=== PATIENT | female | born 1935 | race Caucasian/White ===

== ENCOUNTER 2017-09-11 15:45 | Inpatient (IN) | payer MEDICARE, MEDICAID ==
[~2017-09-11] VITALS: Ht 162.6 cm; Wt 77.3 kg
[~2017-09-11 15:45] MED LIST: ADVA100A INH; APIX5TAB PO; CARV6.25 PO; CICL8SOL TOPICAL; CILO50TA PO; CLAR10CA3 PO; DONE10TA7 PO; GABA300C5 PO; OXYB5TAB8 PO; PRAV40TA2 PO; PRIM50 PO; RISP0.5T2 PO; RISP0.5T25 PO; ROPI0.25 PO; SPIRCAP INH; SYMB160A INH; TYLE325T PO; TYLETAB34 PO; VENTAER INH; VESI5TAB2 PO
--- NOTE | 2017-09-11 16:50 | HHI.HP ---
HPI Service [facility] Primary Care Physician Rick Gay MD Admission Diagnosis Diagnoses: (1) Acute and chronic respiratory failure with hypoxia Diagnosis: Principal (2) Chronic obstructive pulmonary disease with acute exacerbation Diagnosis: Principal Chief Complaint: Cough and shortness of breath Travel History International Travel<30 Days: No Contact w/Intl Traveler <30 Da: No History of Present Illness Written by Jatin Borrego, acting as scribe for Dr. Fernandez on 09/11/17 at 16: 48. 82-year-old female with known history of hypertension, hyperlipidemia , history of myocardial infarction, chronic hypoxic respiratory failure on 2 L nasal cannula, chronic obstructive pulmonary disease, history of atrial fibrillation who presented the hospital at the request of her ALEJANDRO because of shortness of breath and cough. Patient indicates that she had been treated for upper respiratory infection with a weeks worth of antibiotics by her primary medical doctor Dr. Geremias Lopez. Patient finished the antibiotics 1 week ago and since then she has been having a dry nonproductive cough with progressive shortness of breath and dyspnea. Patient denies any fever, chills. She was experiencing some shortness of breath. She does live an ALEJANDRO and the staff did check on her and noticed that she was short of breath so they brought her to the hospital for evaluation. Upon evaluation emergency department patient was found to have increased need for O2 supplementation to maintain O2 sats greater than 92%. Patient was given Levaquin, Solu-Medrol, DuoNeb treatment emergency department with improvement. Patient was recommended admission for further management. Review of Systems Respiratory: COMPLAINS OF: Cough, Shortness of breath Except as stated in HPI: all other systems reviewed are Neg Past Family Social History Past Medical History Hypertension Hyperlipidemia Atrial fibrillation History congestive heart failure History of myocardial infarction History of CVA Diabetes Chronic obstructive pulmonary disease History of tobacco abuse Carotid stenosis status post endarterectomy Dementia Past Surgical History Left carotid endarterectomy Left hip surgery Lumbar laminectomy Appendectomy Reported Medications Reported Meds & Active Scripts Active Reported Claritin (Loratadine) 10 Mg Cap 10 Mg PO DAILY Gabapentin 300 Mg Cap 600 Mg PO TID Ciclopirox (Nail Lacquer) Topical 8% Soln 1 Applic TOPICAL HS Advair Diskus Inh (Fluticasone-Salmeterol Inh) 100-50 Mcg/Blist Aer 1 Puff INH BID Rinse mouth after use. Ventolin Hfa 18 GM Inh (Albuterol Sulfate) 90 Mcg/Act Aer 2 Puff INH Q6H PRN Tylenol-Codeine #3 (Acetaminophen-Codeine) 300-30 mg Tab 1 Tab PO Q4H PRN Tylenol (Acetaminophen) 325 Mg Tab 650 Mg PO Q6H PRN Vesicare (Solifenacin) 5 Mg Tab 5 Mg PO DAILY Ropinirole 0.25 Mg Tab 0.25 Mg PO HS Risperidone 0.5 Mg Tab 0.5 Mg PO HS Pravastatin 40 Mg Tab 40 Mg PO DAILY Spiriva Handihaler (Tiotropium Inh) 18 Mcg Cap 18 Mcg INH DAILY 1 capsule = 18 mcg Mysoline (Primidone) 50 Mg Tab 50 Mg PO DAILY Eliquis (Apixaban) 5 Mg Tab 5 Mg PO BID Donepezil 10 Mg Tab 10 Mg PO HS Cilostazol 50 Mg Tab 50 Mg PO BID Coreg (Carvedilol) 6.25 Mg Tab 6.25 Mg PO BID Allergies: Coded Allergies: aspirin (Unverified Allergy, Severe, RASHES, 09/11/17) penicillin G (Unverified Allergy, Intermediate, RASHES , 09/11/17) procaine (Unverified Allergy, Mild, HIVES, 09/11/17) Family History Family history was reviewed and significant for diabetes Social History Patient quit smoking 6 years ago, prior to that she smoked 1 pack of cigarettes a day since she was 16 years old. Patient denies any alcohol or illicit drugs Physical Exam Physical Exam GENERAL: Well-developed, well-nourished, in no acute distress. alert and orientated HEENT: Head is normocephalic without any lesions or masses noted. Facial features are symmetric. Eyes: Pupils equal round reactive to light. Extraocular muscles are intact. Conjunctivae were clear. Oropharyngeal: Pharynx without any erythema edema. Tongue is midline without deviation. Buccal mucosa is moist without any masses or lesions NECK: Supple without any masses. Trachea midline no deviation. No JVD, no bruits are appreciated CARDIAC: Regular rhythm, regular rate. S1/S2 are heard. No murmurs gallops or rubs. LUNGS: Clear to auscultation bilaterally. No wheeze, rhonchi or rales. No use of accessory muscles on inspiration or expiration. ABDOMEN: Soft, nontender. Nondistended. Bowel sounds heard in all 4 quadrants. No organomegaly or masses. Negative rebound, negative guarding EXTREMITIES: No edema, pulses are equal bilaterally. No cyanosis or clubbing NEUROLOGY: Mood and affect appear appropriate. Cranial nerves II through XII grossly intact. Muscle strength 5/5 in upper and lower extremities bilaterally. Deep tendon reflexes are 2+ in upper and lower extremities bilaterally. Caprini VTE Risk Assessment Caprini VTE Risk Assessment: Mod/High Risk (score >= 2) Caprini Risk Assessment Model Point Value = 1 Point Value = 2 Point Value = 3 Point Value = 5 Age 41-60 Minor surgery BMI > 25 kg/m2 Swollen legs Varicose veins or History of unexplained or recurrent spontaneous Oral contraceptives or hormone replacement Sepsis (< 1 month) Serious lung disease, including pneumonia (< 1 month) Abnormal pulmonary function Acute myocardial infarction Congestive heart failure (< 1 month) History of inflammatory bowel disease Medical patient at bed rest Age 61-74 Arthroscopic surgery Major open surgery (> 45 min) Laparoscopic surgery (> 45 min) Malignancy Confined to bed (> 72 hours) Immobilizing plaster cast Central venous access Age >= 75 History of VTE Family history of VTE Factor V Leiden Prothrombin [id number] Lupus anticoagulant Anticardiolipin antibodies Elevated serum homocysteine Heparin-induced thrombocytopenia Other congenital or acquired thrombophilia Stroke (< 1 month) Elective arthroplasty Hip, pelvis, or leg fracture Acute spinal cord injury (< 1 month) Prophylaxis Regimen Total Risk Factor Score Risk Level Prophylaxis Regimen 0-1 Low Early ambulation 2 Moderate Order ONE of the following: *Sequential Compression Device (SCD) *Heparin 5000 units SQ BID 3-4 Higher Order ONE of the following medications: *Heparin 5000 units SQ TID *Enoxaparin/Lovenox 40 mg SQ daily (WT < 150 kg, CrCl > 30 mL/min) *Enoxaparin/Lovenox 30 mg SQ daily (WT < 150 kg, CrCl > 10-29 mL/min) *Enoxaparin/Lovenox 30 mg SQ BID (WT < 150 kg, CrCl > 30 mL/min) AND/OR *Sequential Compression Device (SCD) 5 or more Highest Order ONE of the following medications: *Heparin 5000 units SQ TID (Preferred with Epidurals) *Enoxaparin/Lovenox 40 mg SQ daily (WT < 150 kg, CrCl > 30 mL/min) *Enoxaparin/Lovenox 30 mg SQ daily (WT < 150 kg, CrCl > 10-29 mL/min) *Enoxaparin/Lovenox 30 mg SQ BID (WT < 150 kg, CrCl > 30 mL/min) AND *Sequential Compression Device (SCD) Assessment and Plan Problem List: (1) Acute and chronic respiratory failure with hypoxia ICD Code: J96.21 - Acute and chronic respiratory failure with hypoxia (2) Chronic obstructive pulmonary disease with acute exacerbation ICD Code: J44.1 - Chronic obstructive pulmonary disease with (acute) exacerbation Assessment and Plan Acute on chronic hypoxic respiratory failure likely secondary to chronic obstructive pulmonary disease exacerbation -Chest x-ray shows platelike scarring versus atelectasis right lower lung. Nonspecific nodular infiltrates in the right upper lung, recommending follow-up with noncontrasted CT of the thorax -Obtain further testing to include arterial blood gas, stat d-dimer -Continue O2 supplementation maintain O2 sats greater than 92% -Continue Levaquin 750 mg daily -Solu-Medrol 60 mg IV every 6 hours -Duo nebs every 6 hours while awake and every 2 hours as needed -Symbicort 1 inhalation twice daily -Incentive spirometry Hypertension, hyperlipidemia, coronary disease, atrial fibrillation, history of CVA, dementia -Continue home medication Diabetes -Diabetic diet -Accu-Cheks with sliding scale insulin DVT prevention -Patient is on Eliquis This note was transcribed by gene Borrego. I, Dr. Michael Fernandez personally performed the history, physical exam, and medical decision making; and confirmed the accuracy of the information in the transcribed note. Authenticated by Dr. Michael Fernandez on 09/11/17 at 16:48. Code Status Full code Discussed Condition With Patient, ED physician Physician Certification 2 Midnight Certification Type: Admission for Inpatient Services Order for Inpatient Services The services are ordered in accordance with Medicare regulations or non- Medicare payer requirements, as applicable. In the case of services not specified as inpatient-only, they are appropriately provided as inpatient services in accordance with the 2-midnight benchmark. Estimated LOS (days): 3 days is the estimated time the patient will need to remain in the hospital, assuming treatment plan goals are met and no additional complications. Post-Hospital Plan: Not yet determined Jatin Borrego September 11, 2017 16:50 Michael Fernandez MD September 11, 2017 16:50
[2017-09-11] MEDS ORDERED: LEVOFLOXACIN 750 MG TAB PO SCH (17:00)
[2017-09-11] MEDS ORDERED: ONDANSETRON HCL 4 MG/2 ML VIAL IV PUSH PRN (17:00)
[2017-09-11] MEDS ORDERED: DEXTROSE 50% IN WATER 50 ML VIAL(D50) IV PUSH PRN (17:00)
[2017-09-11] MEDS ORDERED: ALUMINUM/MAGNESIUM/SIMETH 30 ML CUP PO PRN (17:00)
[2017-09-11] MEDS ORDERED: SODIUM CHLORIDE 0.9% FLUSH 10 ML FLUSH IV FLUSH PRN (17:00)
[2017-09-11] MEDS ORDERED: DOCUSATE SODIUM 100 MG CAP PO PRN (17:00)
[2017-09-11] MEDS ORDERED: MAGNESIUM HYDROXIDE SUSP 30 ML CUP PO PRN (17:00)
[2017-09-11] MEDS ORDERED: ACETAMINOPHEN 325 MG TAB PO PRN (17:00)
[2017-09-11] MEDS ORDERED: GLUCAGON 1 MG/ML VIAL OTHER PRN (17:00)
[2017-09-11] MEDS ORDERED: TEMAZEPAM 15 MG CAP PO PRN (17:00)
[2017-09-11] MEDS ORDERED: RESP: ALBUTEROL 2.5 MG/IPRATROPIUM 0.5 MG NEB (PRN) NEB (17:15)
[2017-09-11 17:47] VITALS: O2SAT 96
[2017-09-11 18:12] VITALS: BP 180/74; PULSE 82; RESP 18; TEMP 97.7; O2SAT 94
[2017-09-11] MEDS: INSULIN ASPART SUPPLEMENTAL SCALE SQ SCH ×2 (18:45→21:00)
[2017-09-11] MEDS: methylPREDNISolone SOD SUCC 125 MG/2 ML VIAL IV PUSH SCH ×2 (18:46→23:13)
[2017-09-11] MEDS: GABAPENTIN 300 MG CAP PO SCH (18:49)
[2017-09-11] MEDS: RESP: ALBUTEROL 2.5 MG/IPRATROPIUM 0.5 MG NEB (SCH) INH (20:44)
[2017-09-11 20:47] VITALS: O2SAT 93
--- NOTE | 2017-09-11 21:09 | RADRPT ---
EXAM DATE: 09/11/2017 8:48 PM EDT AGE/SEX: 82 years / Female INDICATIONS: Short of breath. Abnormal chest x-ray. Evaluate nodular infiltrates. CLINICAL DATA: This is the patient's initial encounter. Patient reports that signs and symptoms have been present for 1 day and indicates a pain score of 0/10. MEDICAL/SURGICAL HISTORY: Chronic obstructive pulmonary disease. Congestive heart failure. Cerebr ovascular disease. Myocardial infarction. Hypertension. Diabetes. Appendectomy. Carotid endartere ctomy. Lumbar laminectomy. RADIATION DOSE: 11.34 CTDI (mGy) COMPARISON: [facility], CHEST SINGLE AP, 09/11/2017. . TECHNIQUE: Multiple contiguous axial images were obtained through the chest without contrast. Image s were obtained in suspended respiration using multiple row detector helical technique. Using automa theresa exposure control and adjustment of the mA and/or kV according to patient size, radiation dose was kept as low as reasonably achievable to obtain optimal diagnostic quality images. FINDINGS: Lungs: There is multi segmental consolidation in the right lower lung with air bronchograms. In the anterior lateral right upper lung, there is an ill-defined area of infiltrate measuring up to 2 cm in size correlates with the finding seen on chest x-ray. A linear area of scarring or atelectasis is pr esent medially in the right midlung. Small infiltrative opacity in the right midlung which measures 7 . Mediastinum: There is good visualization of the great vessels of the middle mediastinum. No evidenc e of mediastinal or hilar adenopathy/mass. Coronary artery calcifications. Pleurae: No evidence of focal thickening or pleural effusion. Axillae: Unremarkable. Bony Structures: Unremarkable. CONCLUSION: 1. Multifocal areas of infiltrate in the right lung including upper, mid and lower lung. The largest area of infiltrate is in the right lower lung. Since the upper and mid lung lesions are deformity of air bronchograms and demonstrate some linear opacities, recommend follow-up imaging to complete radi ographic resolution. Electronically signed by: Rodolfo Reynoso MD 09/11/2017 9:08 PM EDT
[2017-09-11] MEDS: APIXABAN 5 MG TABLET PO SCH (21:14)
[2017-09-11] MEDS: CILOSTAZOL 50 MG TAB PO SCH (21:14)
[2017-09-11] MEDS: risperiDONE 0.25 MG TAB PO SCH (21:14)
[2017-09-11] MEDS: DONEPEZIL HCL 5 MG TAB PO SCH (21:15)
[2017-09-11] MEDS: BUDESONIDE-FORMOTEROL 160/4.5 MCG INHALER INH SCH (21:15)
[2017-09-11] MEDS: CARVEDILOL 6.25 MG TAB PO SCH (21:15)
[2017-09-11] MEDS: SODIUM CHLORIDE 0.9% FLUSH 10 ML FLUSH IV FLUSH SCH (21:15)
[2017-09-11 23:59] VITALS: BP 138/69; PULSE 93; RESP 21; TEMP 99.1; O2SAT 92
[2017-09-12] VITALS (7 sets, daily range): BP systolic 115–145; BP diastolic 56–64; PULSE 85–91; RESP 19–22; TEMP 98.6–99; O2SAT 92–94
[2017-09-12] MEDS: methylPREDNISolone SOD SUCC 125 MG/2 ML VIAL IV PUSH SCH (04:55)
[2017-09-12 06:07] LABS: AUTOMATED NEUTROPHIL # 5.6 TH/MM3 (1.8-7.7); BASOPHIL % 0.1 % (0.0-2.0); EOSINOPHIL % 0.6 % (0.0-4.0); HEMATOCRIT 37.1 % (35.0-46.0); HEMOGLOBIN 12.3 GM/DL (11.6-15.3); LYMPH % 15.4 % (9.0-44.0); MEAN CELL VOLUME 90.4 FL (80.0-100.0); MEAN CORPUSCULAR HGB CONC 33.2 % (32.0-36.0); MEAN PLATELET VOLUME 9.5 FL (7.0-11.0); MONO % 2.1 % (0.0-8.0); MONOCYTE # 0.1 TH/MM3 (0-0.9); NEUT % 81.8 % (16.0-70.0); PLATELET COUNT 187 TH/MM3 (150-450); RED BLOOD COUNT 4.11 MIL/MM3 (4.00-5.30); RED CELL DISTRIBUTION WIDTH 14.1 % (11.6-17.2); WHITE BLOOD COUNT 6.7 TH/MM3 (4.0-11.0)
[2017-09-12 06:19] LABS: BICARBONATE 25.5 MEQ/L (21.0-32.0); CALCIUM 8.7 MG/DL (8.5-10.1)
[2017-09-12] MEDS: RESP: ALBUTEROL 2.5 MG/IPRATROPIUM 0.5 MG NEB (SCH) INH ×3 (07:55→20:21)
[2017-09-12] MEDS: CILOSTAZOL 50 MG TAB PO SCH ×2 (08:41→21:04)
[2017-09-12] MEDS: PRAVASTATIN SOD 40 MG TAB PO SCH (08:41)
[2017-09-12] MEDS: TOLTERODINE TARTRATE 2 MG CAP LA PO SCH (08:41)
[2017-09-12] MEDS: APIXABAN 5 MG TABLET PO SCH ×2 (08:42→21:04)
[2017-09-12] MEDS: GABAPENTIN 300 MG CAP PO SCH ×2 (08:42→21:03)
[2017-09-12] MEDS: CARVEDILOL 6.25 MG TAB PO SCH ×2 (08:42→21:03)
[2017-09-12] MEDS: PRIMIDONE 50 MG TAB PO SCH (08:42)
[2017-09-12] MEDS: INSULIN ASPART SUPPLEMENTAL SCALE SQ SCH ×4 (08:43→21:15)
[2017-09-12] MEDS: BUDESONIDE-FORMOTEROL 160/4.5 MCG INHALER INH SCH ×2 (08:43→21:04)
[2017-09-12] MEDS: SODIUM CHLORIDE 0.9% FLUSH 10 ML FLUSH IV FLUSH SCH ×2 (08:43→21:08)
--- NOTE | 2017-09-12 09:51 | HHI.PR ---
Subjective Remarks Follow-up COPD exacerbation/respiratory failure. September 12, 2017-patient seen and examined, reports significant improvement of shortness of breath. Denies any chest pain Objective Vitals Vital Signs Date Time Temp Pulse Resp B/P (MAP) Pulse Ox O2 Delivery O2 Flow Rate FiO2 09/12/17 08:33 98.6 87 21 115/57 (76) 93 09/12/17 07:55 92 Nasal Cannula 3.00 09/11/17 23:59 99.1 93 21 138/69 (92) 92 09/11/17 20:47 93 Nasal Cannula 3.00 09/11/17 18:12 97.7 82 18 180/74 (109) 94 09/11/17 17:47 96 Nasal Cannula 3.00 I/O 09/11/17 09/11/17 09/11/17 09/12/17 09/12/17 09/12/17 07:00 15:00 23:00 07:00 15:00 23:00 Intake Total 2 ml Balance 2 ml Intake IV Total 2 ml # Voids 3 Result Diagram: 09/12/17 0530 09/12/17 0530 A/P Problem List: (1) Acute and chronic respiratory failure with hypoxia ICD Code: J96.21 - Acute and chronic respiratory failure with hypoxia (2) Chronic obstructive pulmonary disease with acute exacerbation ICD Code: J44.1 - Chronic obstructive pulmonary disease with (acute) exacerbation Assessment and Plan 82-year-old female with Acute on chronic hypoxic respiratory failure likely secondary to chronic obstructive pulmonary disease exacerbation -Chest x-ray shows platelike scarring versus atelectasis right lower lung. Nonspecific nodular infiltrates in the right upper lung, recommending follow-up with noncontrasted CT of the thorax -Obtain further testing to include arterial blood gas, stat d-dimer -Continue O2 supplementation maintain O2 sats greater than 92% -Continue Levaquin 750 mg daily -Change Solu-Medrol to 40 mg IV every 8 hours -Duo nebs every 6 hours while awake and every 2 hours as needed -Symbicort 1 inhalation twice daily and add Spiriva -Incentive spirometry Hypertension, hyperlipidemia, coronary disease, atrial fibrillation, history of CVA, dementia -Continue home medication Diabetes -Diabetic diet -Accu-Cheks with sliding scale insulin DVT prevention -Patient is on Michael Mead MD September 12, 2017 09:51
[2017-09-12] MEDS: TIOTROPIUM BROMIDE 18 MCG INH INH SCH (11:06)
[2017-09-12] MEDS ORDERED: IOHEXOL 350 MG/ML 10 ML VIAL (for RAD DIAG) IVCONTRAST ONE (11:49)
--- NOTE | 2017-09-12 11:55 | RADRPT ---
EXAM DATE: 09/12/2017 11:48 AM EDT AGE/SEX: 82 years / Female INDICATIONS: Hypoxia. Elevated d-dimer. CLINICAL DATA: This is the patient's initial encounter. Patient reports that signs and symptoms have been present for 2 weeks and indicates a pain score of 0/10. MEDICAL/SURGICAL HISTORY: Chronic obstructive pulmonary disease. Congestive heart failure. Cerebr ovascular disease. Hypertension. Diabetes. Carotid endarterectomy. Appendectomy. RADIATION DOSE: 14.60 CTDI (mGy) COMPARISON: [facility], CT THORAX W/O CONTRAST, 09/11/2017. . TECHNIQUE: Volumetric scanning was performed using a multi-row detector CT scanner during bolus infu yovanny of 70 ml Omnipaque 350 (iohexol) nonionic water-soluble contrast as a single exam dose. The ammon a was post processed with a variety of visualization algorithms including full volume maximum intensi ty projection and sliding thin slab reformation. Using automated exposure control and adjustment of the mA and/or kV according to patient size, radiation dose was kept as low as reasonably achievable t o obtain optimal diagnostic quality images. FINDINGS: Pulmonary Arteries: No filling defects are seen in the pulmonary arteries out to the subsegmental ve ssels. The left and right pulmonary arteries are normal in diameter. Lung: Patchy infiltrates, right worse than left unchanged from yesterday's CT Effusion: None. Mediastinum: No evidence of mediastinal or hilar adenopathy. Other: The axilla is unremarkable. CONCLUSION: No evidence of pulmonary embolism . Electronically signed by: Michael York MD 09/12/2017 11:54 AM EDT
[2017-09-12] MEDS: methylPREDNISolone SOD SUCC 40 MG/1 ML VIAL IV PUSH SCH ×2 (12:41→21:03)
[2017-09-12] MEDS: DONEPEZIL HCL 5 MG TAB PO SCH (21:04)
[2017-09-12] MEDS: risperiDONE 0.25 MG TAB PO SCH (21:04)
[2017-09-13] VITALS: BP 101/52; PULSE 78; RESP 20; TEMP 97; O2SAT 93
[2017-09-13] MEDS: methylPREDNISolone SOD SUCC 40 MG/1 ML VIAL IV PUSH SCH (05:37)
[2017-09-13] MEDS: RESP: ALBUTEROL 2.5 MG/IPRATROPIUM 0.5 MG NEB (SCH) INH (07:31)
[2017-09-13 07:32] VITALS: O2SAT 96
[2017-09-13] MEDS: TIOTROPIUM BROMIDE 18 MCG INH INH SCH (08:31)
[2017-09-13] MEDS: APIXABAN 5 MG TABLET PO SCH (08:33)
[2017-09-13] MEDS: CARVEDILOL 6.25 MG TAB PO SCH (08:33)
[2017-09-13] MEDS: PRIMIDONE 50 MG TAB PO SCH (08:33)
[2017-09-13] MEDS: SODIUM CHLORIDE 0.9% FLUSH 10 ML FLUSH IV FLUSH SCH (08:33)
[2017-09-13] MEDS: INSULIN ASPART SUPPLEMENTAL SCALE SQ SCH (08:33)
[2017-09-13] MEDS: TOLTERODINE TARTRATE 2 MG CAP LA PO SCH (08:33)
[2017-09-13] MEDS: PRAVASTATIN SOD 40 MG TAB PO SCH (08:34)
[2017-09-13] MEDS: CILOSTAZOL 50 MG TAB PO SCH (08:34)
[2017-09-13] MEDS: GABAPENTIN 300 MG CAP PO SCH (08:34)
[2017-09-13] MEDS: BUDESONIDE-FORMOTEROL 160/4.5 MCG INHALER INH SCH (08:35)
--- NOTE | 2017-09-13 08:56 | HHI.PR ---
Subjective Remarks Follow-up COPD exacerbation/respiratory failure. September 12, 2017-patient seen and examined, reports significant improvement of shortness of breath. Denies any chest pain September 13, 2017-patient seen and examined, states she is ready to go home. Denies any chest pain. She has no complaint of shortness of breath at the moment. Tolerated p.o. without any competition nausea and vomiting. Afebrile. Objective Vitals Vital Signs Date Time Temp Pulse Resp B/P (MAP) Pulse Ox O2 Delivery O2 Flow Rate FiO2 09/13/17 00:00 97.0 78 20 101/52 (68) 93 09/12/17 20:21 92 Nasal Cannula 3.00 09/12/17 20:00 99.0 88 20 115/56 (75) 94 09/12/17 17:10 98.7 85 20 118/59 (78) 92 09/12/17 16:43 19 09/12/17 12:29 98.9 91 22 145/64 (91) 93 I/O 09/12/17 09/12/17 09/12/17 09/13/17 09/13/17 09/13/17 07:00 15:00 23:00 07:00 15:00 23:00 Intake Total 1200 ml 240 ml Balance 1200 ml 240 ml Intake Oral 1200 ml 240 ml # Voids 3 6 1 # Bowel Movements 1 Result Diagram: 09/12/17 0530 09/12/17 [address] Angiography 09/12/17 0000 Signed Impressions: CONCLUSION: No evidence of pulmonary embolism . Chest CT 09/11/17 0000 Signed Impressions: CONCLUSION: 1. Multifocal areas of infiltrate in the right lung including upper, mid and l ower lung. The largest area of infiltrate is in the right lower lung. Since the upper and mid lung lesions are deformity of air bronchograms and demonstrate s ome linear opacities, recommend follow-up imaging to complete radiographic reso lution. Objective Remarks GENERAL: NAD SKIN: Warm and dry. HEAD: Normocephalic. EYES: No scleral icterus. No injection or drainage. NECK: Supple, trachea midline. No JVD or lymphadenopathy. CARDIOVASCULAR: Regular rate and rhythm without murmurs, gallops, or rubs. RESPIRATORY: Breath sounds equal bilaterally. No accessory muscle use. GASTROINTESTINAL: Abdomen soft, non-tender, nondistended. MUSCULOSKELETAL: No cyanosis, or edema. BACK: Nontender without obvious deformity. No CVA tenderness. Procedures none A/P Problem List: (1) Acute and chronic respiratory failure with hypoxia ICD Code: J96.21 - Acute and chronic respiratory failure with hypoxia (2) Chronic obstructive pulmonary disease with acute exacerbation ICD Code: J44.1 - Chronic obstructive pulmonary disease with (acute) exacerbation Assessment and Plan 82-year-old female with Acute on chronic hypoxic respiratory failure likely secondary to chronic obstructive pulmonary disease exacerbation -Chest x-ray shows platelike scarring versus atelectasis right lower lung. Nonspecific nodular infiltrates in the right upper lung, recommending follow-up with noncontrasted CT of the thorax -Obtain further testing to include arterial blood gas, stat d-dimer -Continue O2 supplementation maintain O2 sats greater than 92% -Continue Levaquin 750 mg daily -On Solu-Medrol 40 mg IV every 8 hours; will switch to PO Prednisone -Duo nebs every 6 hours while awake and every 2 hours as needed -Symbicort 1 inhalation twice daily and add Spiriva -Incentive spirometry Hypertension, hyperlipidemia, coronary disease, atrial fibrillation, history of CVA, dementia -Continue home medication Diabetes -Diabetic diet -Accu-Cheks with sliding scale insulin DVT prevention -Patient is on Michael Mead MD September 13, 2017 08:56
[2017-09-13] MEDS ORDERED: IPRA17I INH (09:04)
[2017-09-13] MEDS ORDERED: AZIT250T3 PO (09:04)
[2017-09-13] MEDS ORDERED: SPIRCAP INH (09:04)
[2017-09-13] MEDS ORDERED: VENTAER INH (09:04)
[2017-09-13] MEDS ORDERED: PRED10PA PO (09:04)
[2017-09-13] MEDS ORDERED: SYMB160A INH (09:04)
--- NOTE | 2017-09-13 09:07 | HHI.DS ---
Discharge Summary Admission Date September 11, 2017 at 15:46 Discharge Date: September 13, 2017 Admitting Diagnosis (1) Acute and chronic respiratory failure with hypoxia ICD Code: J96.21 - Acute and chronic respiratory failure with hypoxia (2) Chronic obstructive pulmonary disease with acute exacerbation ICD Code: J44.1 - Chronic obstructive pulmonary disease with (acute) exacerbation Procedures none Brief History - From Admission Written by Jatin Borrego, acting as scribe for Dr. Fernandez on 09/11/17 at 16: 48. 82-year-old female with known history of hypertension, hyperlipidemia , history of myocardial infarction, chronic hypoxic respiratory failure on 2 L nasal cannula, chronic obstructive pulmonary disease, history of atrial fibrillation who presented the hospital at the request of her ALEJANDRO because of shortness of breath and cough. Patient indicates that she had been treated for upper respiratory infection with a weeks worth of antibiotics by her primary medical doctor Dr. Geremias Lopez. Patient finished the antibiotics 1 week ago and since then she has been having a dry nonproductive cough with progressive shortness of breath and dyspnea. Patient denies any fever, chills. She was experiencing some shortness of breath. She does live an ALEJANDRO and the staff did check on her and noticed that she was short of breath so they brought her to the hospital for evaluation. Upon evaluation emergency department patient was found to have increased need for O2 supplementation to maintain O2 sats greater than 92%. Patient was given Levaquin, Solu-Medrol, DuoNeb treatment emergency department with improvement. Patient was recommended admission for further management. CBC/BMP: 09/12/17 0530 09/12/17 0530 Significant Findings Laboratory Tests Test 09/11/17 17:31 09/12/17 05:30 09/12/17 08:05 Neutrophils (%) (Auto) 81.8 % (16.0-70.0) Blood Urea Nitrogen 19 MG/DL (7-18) Random Glucose 234 MG/DL (74-106) Estimat Glomerular Filtration Rate 53 ML/MIN (>89) D-Dimer Quantitative (PE/DVT) 0.53 MG/L FEU (0.00-0.50) Imaging Last Impressions CT Angiography 09/12/17 0000 Signed Impressions: CONCLUSION: No evidence of pulmonary embolism . Chest CT 09/11/17 0000 Signed Impressions: CONCLUSION: 1. Multifocal areas of infiltrate in the right lung including upper, mid and l ower lung. The largest area of infiltrate is in the right lower lung. Since the upper and mid lung lesions are deformity of air bronchograms and demonstrate s ome linear opacities, recommend follow-up imaging to complete radiographic reso lution. PE at Discharge GENERAL: NAD SKIN: Warm and dry. HEAD: Normocephalic. EYES: No scleral icterus. No injection or drainage. NECK: Supple, trachea midline. No JVD or lymphadenopathy. CARDIOVASCULAR: Regular rate and rhythm without murmurs, gallops, or rubs. RESPIRATORY: Breath sounds equal bilaterally. No accessory muscle use. GASTROINTESTINAL: Abdomen soft, non-tender, nondistended. MUSCULOSKELETAL: No cyanosis, or edema. BACK: Nontender without obvious deformity. No CVA tenderness. Hospital Course Patient was admitted anterior COPD exacerbation along with respiratory failure with Solu-Medrol IV, bronchodilator, antibiotics, and oxygen saturation maintained above 88-92%. Symptoms subsequently improved and will switch on p.o. prednisone taper and continue with bronchodilator and a 5 day course of azithromycin 250 mg daily. She was continued on her treatments for other chronic medical conditions. DVT prophylaxis was provided. Prior to discharge, patient's condition improving vitals remained stable. Pt Condition on Discharge: Good Discharge Disposition: Discharge Home Discharge Time: <= 30 minutes Discharge Instructions DIET: Follow Instructions for: Diabetic Diet Activities you can perform: Regular-No Restrictions Follow up Referrals: PCP Follow-up - 1 Week New Medications: Albuterol 18 GM Inh (Ventolin Hfa 18 GM Inh) 90 Mcg/Act Aer 2 PUFF INH Q4-6H PRN for SHORTNESS OF BREATH, #1 INHALER 3 Refills Azithromycin (Azithromycin) 250 Mg Tab 250 MG PO DAILY for Infection, #5 TAB 0 Refills Budesonide-Formoterol Inh (Symbicort Inh) 160-4.5 Mcg/Act Aero 2 PUFF INH Q12HR, #1 INHALER 3 Refills Ipratropium HFA 12.9 GM Inh (Atrovent HFA 12.9 GM Inh) 17 Mcg/Actuation Aer 2 PUFF INH Q6HR PRN for SHORTNESS OF BREATH, #1 INHALER 3 Refills Prednisone (21) 10 mg tab Dose Pack (Prednisone (21) 10 mg tab Dose Pack) 10 Mg Pack 10 MG PO DIRECTED for Inflammation, #1 DSPK 0 Refills Tiotropium Inh (Spiriva Handihaler) 18 Mcg Cap 18 MCG INH DAILY for COPD, #30 CAP 3 Refills 1 capsule = 18 mcg Continued Medications: Acetaminophen (Tylenol) 325 Mg Tab 650 MG PO Q6H PRN for pain, TAB 0 Refills Acetaminophen-Codeine (Tylenol-Codeine #3) 300-30 mg Tab 1 TAB PO Q4H PRN for PAIN, TAB 0 Refills Albuterol 18 GM Inh (Ventolin Hfa 18 GM Inh) 90 Mcg/Act Aer 2 PUFF INH Q6H PRN for SHORTNESS OF BREATH, #1 INHALER 0 Refills Apixaban (Eliquis) 5 Mg Tab 5 MG PO BID for Blood Clot Prevention, #60 TAB 0 Refills Carvedilol (Coreg) 6.25 Mg Tab 6.25 MG PO BID, #60 TAB 0 Refills Ciclopirox (Nail Lacquer) Topical (Ciclopirox (Nail Lacquer) Topical) 8% Soln 1 APPLIC TOPICAL HS for FUNGAL INFECTION, #1 BOTTLE 0 Refills Cilostazol (Cilostazol) 50 Mg Tab 50 MG PO BID for INTERMITTENT CLAUDICATION, TAB 0 Refills Donepezil (Donepezil) 10 Mg Tab 10 MG PO HS for Dementia, #30 TAB 0 Refills Fluticasone-Salmeterol Inh (Advair Diskus Inh) 100-50 Mcg/Blist Aer 1 PUFF INH BID for Asthma Management, #1 INHALER 0 Refills Rinse mouth after use. Gabapentin (Gabapentin) 300 Mg Cap 600 MG PO TID, #90 CAP 0 Refills Loratadine (Claritin) 10 Mg Cap 10 MG PO DAILY for Allergy Management, CAP 0 Refills Pravastatin (Pravastatin) 40 Mg Tab 40 MG PO DAILY for Cholesterol Management, #30 TAB 0 Refills Primidone (Mysoline) 50 Mg Tab 50 MG PO DAILY for Control Seizures, #60 TAB 0 Refills Risperidone (Risperidone) 0.5 Mg Tab 0.5 MG PO HS, #30 TAB 0 Refills Ropinirole (Ropinirole) 0.25 Mg Tab 0.25 MG PO HS, #30 TAB 0 Refills Solifenacin (Vesicare) 5 Mg Tab 5 MG PO DAILY for Urinary Symptom Managemen, #30 TAB 0 Refills Tiotropium Inh (Spiriva Handihaler) 18 Mcg Cap 18 MCG INH DAILY for COPD, #30 CAP 0 Refills 1 capsule = 18 mcg Michael Fernandez MD September 13, 2017 09:07
[2017-09-13 11:20] VITALS: BP 131/63; PULSE 71; RESP 20; TEMP 96.9; O2SAT 93
[2017-09-13] MEDS ORDERED: LEVOFLOXACIN 750 MG TAB PO SCH (17:00)
== END 2017-09-13 11:36 | DRG 189 ==
LOC: PHEDDLT 15:45 → PH3B 15:46
PROVIDERS: ADMIT Hospitalist; ATTEND Hospitalist
PROC: 3E0F7GC Introduction of Other Therapeutic Substance into Respiratory Tract, Via Natural or Artificial Opening (ICD-10-PCS; principal; 2017-09-11)
DX: J96.21 Acute and chronic respiratory failure with hypoxia (principal); J44.1 Chronic obstructive pulmonary disease with (acute) exacerbation; I50.9 Heart failure, unspecified; I11.0 Hypertensive heart disease with heart failure; F03.90 Unspecified dementia, unspecified severity, without behavioral disturbance, psychotic disturbance, mood disturbance, and anxiety; I48.91 Unspecified atrial fibrillation; I25.2 Old myocardial infarction; E78.5 Hyperlipidemia, unspecified; Z83.3 Family history of diabetes mellitus; Z79.01 Long term (current) use of anticoagulants; Z86.73 Personal history of transient ischemic attack (TIA), and cerebral infarction without residual deficits; Z87.891 Personal history of nicotine dependence; E11.9 Type 2 diabetes mellitus without complications
CPT/HCPCS: 36600; 71250; 71275; 80048; 82805; 82948; 85025; 85379; 94150; 94640; 94664; J1815; J2405; J2920; J2930; Q9967